=== PATIENT | female | born 1995 | race African-American/Black ===

== ENCOUNTER 2019-02-10 06:48 | Emergency (ER) | payer MEDICAID ==
[~2019-02-10] VITALS: Ht 165.1 cm; Wt 69.0 kg
[2019-02-10] MEDS ORDERED: SODIUM CHLORIDE 0.9% 1,000 ML IV ONE ×2 (07:26→11:30)
[2019-02-10] MEDS ORDERED: ACETAMINOPHEN 325MG TABLET PO PRN (07:30)
[2019-02-10] MEDS ORDERED: ONDANSETRON HCL 4MG/2ML INJ IV ONE (07:30)
[2019-02-10 09:22] LABS: BASOPHILS % 0.3 % (0.0-2.0); EOSINOPHILS % 0.1 % (0.0-5.0); HEMATOCRIT. 40.9 % (36.0-48.0); HEMOGLOBIN. 14.1 g/dL (12.0-16.0); LYMPHOCYTES % 17.8 % (20.0-50.0); MEAN CORPUSCULAR HEMOGLOBIN 28.5 pg (28.0-32.0); MEAN CORPUSCULAR VOLUME 82.8 fL (81.0-99.0); MEAN PLATELET VOLUME 7.7 fl (7.4-10.4); MONOCYTES % 5.6 % (2.0-8.0); NEUTROPHILS % 76.2 % (40.0-76.0); PLATELET 336 x1000/uL (130-400); RED BLOOD CELL COUNT 4.94 mill/uL (4.2-5.4); RED CELL DISTRIBUTION WIDTH 13.8 % (11.6-14.6)
[2019-02-10 09:28] LABS: CHLORIDE 102 mEq/L (98-107)
[2019-02-10 09:51] LABS: B-HCG QUANTITATIVE 35093 mIU/mL (<3)
[2019-02-10 12:07] LABS: CLARITY URINE CLEAR (CLEAR); COLOR URINE YELLOW (YELLOW); KETONES URINE 3+ (NEGATIVE); LEUKOCYTE ESTERASE URINE NEGATIVE (NEGATIVE); NITRITE URINE NEGATIVE (NEGATIVE); OCCULT BLOOD URINE NEGATIVE (NEGATIVE); PH URINE 6.5 (4.5-8.0); PROTEIN URINE TRACE (NEGATIVE); SPECIFIC GRAVITY URINE 1.024 (1.005-1.030)
[2019-02-10 16:00] VITALS: BP 114/70
== END 2019-02-10 16:22 | disposition home or self-care (01) ==
LOC: ER 06:48
DX: O21.8 Other vomiting complicating pregnancy (principal); O26.891 Other specified pregnancy related conditions, first trimester; R10.84 Generalized abdominal pain; Z3A.01 Less than 8 weeks gestation of pregnancy
CPT/HCPCS: 36415; 76700; 76801; 76817; 80053; 81003; 81025; 83690; 84702; 85025; 86850; 86900; 86901; 96374; 99284; J2405; J7030

== ENCOUNTER 2021-04-19 07:47 | Emergency (ER) | payer MEDICAID ==
[~2021-04-19] VITALS: Ht 165.1 cm; Wt 68.0 kg
[2021-04-19] MEDS ORDERED: ACETAMINOPHEN 325MG TABLET PO ONE (08:15)
[2021-04-19] MEDS ORDERED: IBUP-2028 MT (08:16)
[2021-04-19 09:31] VITALS: BP 117/61
== END 2021-04-19 09:33 | disposition home or self-care (01) ==
LOC: ER 07:47
DX: M25.511 Pain in right shoulder (principal)
CPT/HCPCS: 29105; 73030; 81025; 99283; A4565

== ENCOUNTER 2021-06-18 15:55 | Emergency (ER) | payer MEDICAID, OTHER ==
[~2021-06-18] VITALS: Ht 165.1 cm; Wt 66.0 kg
[~2021-06-18 15:55] MED LIST: IBUP-2028 MT
[2021-06-18] MEDS ORDERED: KETOROLAC 60MG/2ML VIAL IM ONE (16:45)
[2021-06-18 17:06] VITALS: BP 110/62
== END 2021-06-18 17:57 | disposition home or self-care (01) ==
LOC: ER 15:55
DX: M25.511 Pain in right shoulder (principal); V43.52XA Car driver injured in collision with other type car in traffic accident, initial encounter; Y93.89 Activity, other specified; Y92.488 Other paved roadways as the place of occurrence of the external cause
CPT/HCPCS: 73030; 81025; 96372; 99283; J1885

== ENCOUNTER 2021-06-24 10:04 | Emergency (ER) | payer OTHER ==
[~2021-06-24] VITALS: Ht 167.6 cm; Wt 70.0 kg
[2021-06-24 10:08] VITALS: BP 105/87
== END 2021-06-24 12:19 | disposition left against medical advice (07) ==
LOC: ER 10:04
DX: Z53.21 Procedure and treatment not carried out due to patient leaving prior to being seen by health care provider (principal)

== ENCOUNTER 2021-08-27 09:43 | Emergency (ER) | payer OTHER ==
[~2021-08-27] VITALS: Ht 160 cm; Wt 62.0 kg
[2021-08-27] MEDS ORDERED: IBUPROFEN 600MG TABLET PO ONE (10:00)
[2021-08-27 11:03] VITALS: BP 117/66
[2021-08-27] MEDS ORDERED: CYCL10TA7 MT (11:07)
[2021-08-27] MEDS ORDERED: IBUP-2029 MT (11:07)
== END 2021-08-27 11:32 | disposition home or self-care (01) ==
LOC: ER 09:43
DX: S20.229A Contusion of unspecified back wall of thorax, initial encounter (principal); V43.52XA Car driver injured in collision with other type car in traffic accident, initial encounter; Y93.89 Activity, other specified; Y92.488 Other paved roadways as the place of occurrence of the external cause
CPT/HCPCS: 71045; 99283

== ENCOUNTER 2021-09-10 09:02 | Emergency (ER) | payer OTHER ==
[~2021-09-10] VITALS: Ht 165.1 cm; Wt 62.0 kg
[~2021-09-10 09:02] MED LIST changes: +CYCL10TA7 MT; +IBUP-2029 MT
[2021-09-10] MEDS ORDERED: T3 PO (09:32)
[2021-09-10] MEDS ORDERED: ONDA4TAB5 PO (09:32)
[2021-09-10] MEDS ORDERED: IBUP-2028 PO (09:32)
[2021-09-10 09:49] VITALS: BP 110/85
== END 2021-09-10 11:49 | disposition home or self-care (01) ==
LOC: ER 11:21
DX: Z48.00 Encounter for change or removal of nonsurgical wound dressing (principal); M54.50 Low back pain, unspecified; V43.52XA Car driver injured in collision with other type car in traffic accident, initial encounter; Y93.89 Activity, other specified; Y92.488 Other paved roadways as the place of occurrence of the external cause
CPT/HCPCS: 99281

== ENCOUNTER 2021-11-27 11:44 | Emergency (ER) | payer OTHER ==
[~2021-11-27] VITALS: Ht 162.6 cm; Wt 60.0 kg
[~2021-11-27 11:44] MED LIST changes: +IBUP-2028 PO; +ONDA4TAB5 PO; +T3 PO
[2021-11-27 12:12] VITALS: BP 116/72
[2021-11-27] MEDS ORDERED: AMOX-424 MT (12:41)
[2021-11-27] MEDS ORDERED: IBUP-2029 MT (12:41)
== END 2021-11-27 12:59 | disposition home or self-care (01) ==
LOC: ER 11:44
DX: K08.89 Other specified disorders of teeth and supporting structures (principal); R68.84 Jaw pain
CPT/HCPCS: 81025; 99283

== ENCOUNTER 2021-12-06 11:36 | Emergency (ER) | payer OTHER ==
[~2021-12-06] VITALS: Ht 165.1 cm; Wt 63.0 kg
[~2021-12-06 11:36] MED LIST changes: +AMOX-424 MT
[2021-12-06 11:41] VITALS: BP 110/66
== END 2021-12-06 17:45 | disposition left against medical advice (07) ==
LOC: ER 11:51
DX: Z53.21 Procedure and treatment not carried out due to patient leaving prior to being seen by health care provider (principal)
CPT/HCPCS: 93005; 99283

== ENCOUNTER 2021-12-07 10:55 | Emergency (ER) | payer OTHER ==
[~2021-12-07] VITALS: Ht 165.1 cm; Wt 63.0 kg
[2021-12-07 10:57] VITALS: BP 121/80
[2021-12-07] MEDS ORDERED: ACETAMINOPHEN 325MG TABLET PO ONE (11:45)
[2021-12-07 12:00] LABS: BASOPHILS % 0.3 % (0.0-2.0); EOSINOPHILS % 0.3 % (0.0-5.0); HEMATOCRIT. 43.1 % (36.0-48.0); HEMOGLOBIN. 14.7 g/dL (12.0-16.0); LYMPHOCYTES % 33.9 % (20.0-50.0); MEAN CORPUSCULAR HEMOGLOBIN 28.1 pg (28.0-32.0); MEAN CORPUSCULAR VOLUME 82.4 fL (81.0-99.0); MONOCYTES % 5.4 % (2.0-8.0); NEUTROPHILS % 60.1 % (40.0-76.0); PLATELET 327 x1000/uL (130-400); RED BLOOD CELL COUNT 5.23 mill/uL (4.2-5.4); RED CELL DISTRIBUTION WIDTH 13.6 % (11.6-14.6)
[2021-12-07 12:07] LABS: CHLORIDE 109 mEq/L (98-107)
[2021-12-07 12:09] LABS: HCG SCREEN NEGATIVE
== END 2021-12-07 13:53 | disposition home or self-care (01) ==
LOC: ER 10:55
DX: R07.89 Other chest pain (principal); Z79.899 Other long term (current) drug therapy
CPT/HCPCS: 36415; 71045; 73030; 80053; 83880; 84484; 84703; 85025; 93005; 99285

== ENCOUNTER 2022-04-29 11:57 | Emergency (ER) | payer OTHER ==
[~2022-04-29] VITALS: Ht 165.1 cm; Wt 65.0 kg
[~2022-04-29 11:57] MED LIST changes: +CYCL10TA21 MT; -CYCL10TA7 MT
[2022-04-29 12:11] VITALS: BP 133/72
[2022-04-29] MEDS ORDERED: ONDANSETRON HCL 4MG/2ML INJ IV ONE (14:15)
[2022-04-29] MEDS ORDERED: SODIUM CHLORIDE 0.9% 1,000 ML IV ONE (14:15)
[2022-04-29 14:46] LABS: BASOPHILS % 0.5 % (0.0-2.0); EOSINOPHILS % 0.3 % (0.0-5.0); HEMATOCRIT. 40.5 % (36.0-48.0); HEMOGLOBIN. 14.2 g/dL (12.0-16.0); LYMPHOCYTES % 27.8 % (20.0-50.0); MEAN CORPUSCULAR VOLUME 82.6 fL (81.0-99.0); MEAN PLATELET VOLUME 7.5 fl (7.4-10.4); MONOCYTES % 6.4 % (2.0-8.0); PLATELET 371 x1000/uL (130-400); RED CELL DISTRIBUTION WIDTH 13.4 % (11.6-14.6)
[2022-04-29 14:51] LABS: CHLORIDE 96 mEq/L (98-107)
[2022-04-29 15:29] LABS: B-HCG QUANTITATIVE 30170 mIU/mL (<3)
[2022-04-29] MEDS ORDERED: METOCLOPRAMIDE HCL 10MG/2ML VIAL IV ONE (17:00)
[2022-04-29] MEDS ORDERED: ONDA4TAB50 MT (18:05)
[2022-04-29] MEDS ORDERED: PYRI25TA4 MT (18:05)
== END 2022-04-29 18:24 | disposition home or self-care (01) ==
LOC: ER 11:57
DX: O21.1 Hyperemesis gravidarum with metabolic disturbance (principal); Z3A.01 Less than 8 weeks gestation of pregnancy
CPT/HCPCS: 36415; 76801; 76817; 80053; 84702; 85025; 86850; 86900; 86901; 96361; 96374; 96375; 99284; J2405; J2765; J7030